=== PATIENT | female | born 1985 | race Caucasian/White ===

== ENCOUNTER 2016-11-20 22:37 | Emergency (ER) | payer BC ==
[~2016-11-20] VITALS: Ht 172.7 cm; Wt 105.5 kg
[2016-11-20 22:40] VITALS: TEMP 36.9; Ht 172.7 cm; Wt 105.5 kg
[2016-11-20] MEDS ORDERED: KETOROLAC TROMETHAMINE 30 MG/ML VIAL IV STA (22:49)
[2016-11-20] MEDS ORDERED: ONDANSETRON INJ 2 MG/ML 2 ML VIAL IV STA (22:49)
[2016-11-20] MEDS ORDERED: SODIUM CHLORIDE 0.9% 1000ML 1,000 ML IV STA ×2 (22:49)
[2016-11-20] MEDS ORDERED: LIDOCAINE HCL 2% VISC SOLN 20 ML UDC PO STA (22:55)
[2016-11-20] MEDS ORDERED: ALUMINUM/MAGNESIUM SUSP 30 ML UDC PO STA (22:55)
[2016-11-20] MEDS ORDERED: DICYCLOMINE HCL 10 MG/ML 2 ML AMP IM ONE (23:00)
[2016-11-20 23:28] VITALS: O2SAT 98
[2016-11-21 00:10] LABS: BASO % 0.4 %; BASO ABS # 0.05 K/uL (0-0.2); COMPLETE YES; EOS % 1.7 %; HEMATOCRIT 34.9 % (37-47); IG% 0.4 %; LYMPH % 16.6 %; LYMPH ABS # 2.24 K/uL (1.2-3.4); MEAN CELL VOLUME 85.5 fL (80-100); MEAN CORPUSCULAR HEMOGLOBIN 28.9 pg (25-34); MEAN CORPUSCULAR HGB CONC 33.8 g/dl (32-36); NEUT % 71.9 %; PLATELET COUNT 350 K/uL (130-400); RED BLOOD COUNT 4.08 M/uL (4.2-5.4); WHITE BLOOD COUNT 13.47 K/uL (4.8-10.8)
[2016-11-21 00:27] LABS: ALT/SGPT 85 U/L (12-78); AST/SGOT 64 U/L (15-37); BLOOD UREA NITROGEN 10 mg/dl (7-18); BUN/CREATININE RATIO 14.7 (10-20); CALCIUM 8.1 mg/dl (8.5-10.1); CARBON DIOXIDE 21 mmol/L (21-32); CHLORIDE 112 mmol/L (98-107); CREATININE 0.69 mg/dl (0.60-1.20); GLUCOSE 109 mg/dl (70-99); MAGNESIUM 1.9 mg/dl (1.8-2.4); POTASSIUM 3.6 mmol/L (3.5-5.1); SODIUM 144 mmol/L (136-145)
[2016-11-21 00:30] LABS: ALKALINE PHOSPHATASE 98 U/L (45-117); C-REACTIVE PROTEIN < 0.29 mg/dl (0-0.29)
[2016-11-21 00:51] LABS: PREG INTERNAL NEGATIVE QC NEG CLEAR BACKGROUND; PREG INTERNAL POSITIVE QC POS CONTROL LINE
[2016-11-21 02:28] LABS: URINE APPEARANCE CLEAR (CLEAR); URINE BILIRUBIN NEG (NEG); URINE COLOR YELLOW; URINE EPITHELIAL CELL AUTO >30 /lpf (0-5); URINE NITRITE NEG (NEG); URINE SPECIFIC GRAVITY > 1.045 (1.000-1.030); UROBILINOGEN NEG (NEG); ZZUR CULT IF INDIC CLEAN CATCH NO
[2016-11-21 02:36] LABS: MANUAL MICROSCOPIC REQUIRED? NO; REVIEW REQ? NO
[2016-11-21] MEDS ORDERED: MoRPHine SULFATE 4 MG/ML 1 ML CARP\\VIAL IV STA (02:54)
[2016-11-21 04:05] VITALS: BP 128/79; PULSE 99; O2SAT 99
--- NOTE | 2016-11-21 06:33 | EMERGENCY ROOM VISIT NOTE ---
History First contact with patient: 22:43 Chief Complaint: ABDOMINAL PAIN Stated Complaint: STOMACH PAIN Nursing Triage Summary: RUQ abdominal pain with nausea. intermittent pain for 2 weeks. Today the pain started at 1600 after eating burritos. Patient has a history of colitis. History of Present Illness The patient is a 31 year old female who presents to the Emergency Room with complaints of epigastric right upper quadrant discomfort after eating burritos today. Patient states she had a CT scan last week. She is ulcer colitis. She does not feel like she is having a flare of her UC. She is in town visiting her boyfriend from [place]. She describes the pain as burning, ranging in severity 5 out of 10. Nothing makes it better or worse. Patient denies chest pain, dyspnea, fever, chills, vomiting, diarrhea, back pain, urinary symptoms. Review of Systems See HPI for pertinent positives & negatives. A total of 10 systems reviewed and were otherwise negative. Past Medical/Surgical History Ulcerative colitis, GERD, anxiety, OCD, palpitations, migraines, asthma, cholecystectomy Social History Smoking Status: Never Smoker Smokeless Tobacco Use: No Alcohol Use: none Drug Use: none Marital Status: in relationship Allergies Coded Allergies: No Known Allergies (Unverified , 11/20/16) Physical Exam Vital Signs Date Time Temp Pulse Resp B/P Pulse Ox O2 Delivery O2 Flow Rate FiO2 11/21/16 04:05 99 18 128/79 99 11/21/16 03:29 99 18 128/79 99 Room Air 11/21/16 02:51 106 18 111/67 99 Room Air 11/21/16 01:15 104 16 125/65 98 Room Air 11/21/16 00:11 102 16 123/69 97 Room Air 11/20/16 23:28 98 Room Air 11/20/16 22:40 36.9 118 18 139/87 98 Room Air Pain Rating (0-10): 3.0 Physical Exam VITALS: Vitals are noted on the nurse's note and reviewed by myself. Vital signs stable. GENERAL: Pleasant female, in no acute distress, nondiaphoretic, well-developed well-nourished. SKIN: The skin was without rashes, erythema, edema, or bruising. There is no tenting of the skin. Capillary reflex less than 2 seconds. HEAD: Normocephalic atraumatic. EARS: External auditory canals clear, tympanic membranes pearly [place] without erythema or effusion bilaterally. EYES: Pupils equal round and reactive to light and accommodation. Conjunctivae without injection, sclerae without icterus. Extraocular movements intact. NOSE: Patent, turbinates without inflammation or discharge. MOUTH: Mucous membranes moist. Pharynx without erythema or exudate. Uvula midline. Airway patent. Tongue does not deviate. NECK: Supple without nuchal rigidity. No lymphadenopathy. No thyromegaly. Cervical spine is nontender. No JVD. HEART: Regular rate and rhythm without murmurs gallops or rubs. LUNGS: Clear to auscultation bilaterally without wheezes, rales or rhonchi. No dullness to percussion. No retractions or accessory muscle use. ABDOMEN: Positive bowel sounds x 4. Normal tympanic percussion. Soft, minimally tender epigastric region, no CVA tenderness, without masses or organomegaly. Cruz sign negative. No guarding or rebound tenderness. MUSCULOSKELETAL: No muscle atrophy, erythema, or edema noted. NEURO: Patient was alert and oriented to person place and time. Normal sensation to light and sharp touch. No focal neurological deficits. Medical Decision & Procedures Laboratory Results 11/20/16 23:58 Red Blood Count 4.08, Mean Corpuscular Volume 85.5, Mean Corpuscular Hemoglobin 28.9, Mean Corpuscular Hemoglobin Concent 33.8, Mean Platelet Volume 10.0, Neutrophils (%) (Auto) 71.9, Lymphocytes (%) (Auto) 16.6, Monocytes (%) (Auto) 9.0, Eosinophils (%) (Auto) 1.7, Basophils (%) (Auto) 0.4, Neutrophils # (Auto) 9.68, Lymphocytes # (Auto) 2.24, Monocytes # (Auto) 1.21, Eosinophils # (Auto) 0.23, Basophils # (Auto) 0.05 11/20/16 23:58 Test 11/20/16 23:25 11/20/16 23:58 11/21/16 00:00 11/21/16 02:10 Urine Color YELLOW Urine Appearance CLEAR (CLEAR) Urine pH 5.0 (4.5-7.5) Urine Specific [place] > 1.045 (1.000-1.030) Urine Protein NEG (NEG) Urine Glucose (UA) NEG (NEG) Urine Ketones TRACE (NEG) Urine Occult Blood NEG (NEG) Urine Nitrite NEG (NEG) Urine Bilirubin NEG (NEG) Urine Urobilinogen NEG (NEG) Urine Leukocyte Esterase TRACE (NEG) Urine WBC (Auto) 5-10 /hpf (0-5) Urine RBC (Auto) 0-4 /hpf (0-4) Urine Hyaline Casts (Auto) 1-5 /lpf (0-5) Urine Epithelial Cells (Auto) >30 /lpf (0-5) Urine Bacteria (Auto) NEG (NEG) White Blood Count 13.47 K/uL (4.8-10.8) Red Blood Count 4.08 M/uL (4.2-5.4) Hemoglobin 11.8 g/dL (12.0-16.0) Hematocrit 34.9 % (37-47) Mean Corpuscular Volume 85.5 fL (80-100) Mean Corpuscular Hemoglobin 28.9 pg (25-34) Mean Corpuscular Hemoglobin Concent 33.8 g/dl (32-36) Platelet Count 350 K/uL (130-400) Mean Platelet Volume 10.0 fL (7.4-10.4) Neutrophils (%) (Auto) 71.9 % Lymphocytes (%) (Auto) 16.6 % Monocytes (%) (Auto) 9.0 % Eosinophils (%) (Auto) 1.7 % Basophils (%) (Auto) 0.4 % Neutrophils # (Auto) 9.68 K/uL (1.4-6.5) Lymphocytes # (Auto) 2.24 K/uL (1.2-3.4) Monocytes # (Auto) 1.21 K/uL (0.11-0.59) Eosinophils # (Auto) 0.23 K/uL (0-0.5) Basophils # (Auto) 0.05 K/uL (0-0.2) RDW Standard Deviation 44.4 fL (36.4-46.3) RDW Coefficient of Variation 14.2 % (11.5-14.5) Immature Granulocyte % (Auto) 0.4 % Immature Granulocyte # (Auto) 0.06 K/uL (0.00-0.02) Erythrocyte Sedimentation Rate 7 mm/hr (0-21) Anion Gap 11.0 mmol/L (3-11) Est Creatinine Clear Calc Drug Dose 151.6 ml/min Estimated GFR () 135.4 Estimated GFR (Non- 116.8 BUN/Creatinine Ratio 14.7 (10-20) Calcium Level 8.1 mg/dl (8.5-10.1) Magnesium Level 1.9 mg/dl (1.8-2.4) Total Bilirubin 0.4 mg/dl (0.2-1) Direct Bilirubin < 0.1 mg/dl (0-0.2) Aspartate Amino Transf (AST/SGOT) 64 U/L (15-37) Alanine Aminotransferase (ALT/SGPT) 85 U/L (12-78) Alkaline Phosphatase 98 U/L (45-117) C-Reactive Protein < 0.29 mg/dl (0-0.29) Total Protein 7.0 gm/dl (6.4-8.2) Albumin 3.6 gm/dl (3.4-5.0) Lipase 178 U/L (73-393) Human Chorionic Gonadotropin, Qual NEG (NEG) Bedside Lactic Acid Venous 2.67 mmol/L (0.90-1.70) Lactic Acid Level 1.6 mmol/L (0.4-2.0) Medications Administered Medications (Trade) Dose Ordered Sig/Nichole Route Start Time Stop Time Status Last Admin Dose Admin Dicyclomine HCl (Bentyl Inj) 20 mg NOW ONCE IM 11/20/16 23:00 11/20/16 23:01 DC 11/20/16 23:21 20 MG Ondansetron HCl 4 mg 4 mg NOW STAT IV 11/20/16 22:49 11/20/16 22:52 DC 11/20/16 23:20 4 MG Sodium Chloride 1,000 ml @ 999 mls/hr Q1H1M STAT IV 11/20/16 22:49 11/20/16 23:49 DC 11/20/16 23:20 999 MLS/HR Sodium Chloride (Nss 1000ml) 1,000 ml @ 200 mls/hr Q5H STAT IV 11/20/16 22:49 11/21/16 03:48 DC 11/21/16 01:18 200 MLS/HR Ketorolac Tromethamine (Toradol Inj) 30 mg NOW STAT IV 11/20/16 22:49 11/20/16 22:52 DC 2/17/17 23:21 30 MG Lidocaine HCl (Viscous Lidocaine 2% Soln) 10 ml NOW STAT PO 11/20/16 22:55 11/20/16 22:57 DC 11/20/16 23:21 10 ML Al Hydroxide/Mg Hydroxide (Maalox Susp) 30 ml NOW STAT PO 11/20/16 22:55 11/20/16 22:57 DC 11/20/16 23:20 30 ML Morphine Sulfate (MoRPHine SULFATE INJ) 4 mg NOW STAT IV 11/21/16 02:54 11/21/16 02:55 DC 11/21/16 03:07 4 MG ED Course Prior records/ancillary studies reviewed. Triage Nursing notes reviewed. The patient's history was concerning for abdominal pain. Differential diagnosis: Etiologies such as appendicitis, diverticulitis, PUD, biliary pathology, UTI, pancreatitis, obstruction, mesenteric ischemia, aortic pathology, infections, inflammatory bowel disease, renal colic, as well as others were entertained. Physical examination findings: As above. ER treatment provided: GI cocktail On reassessment the patient felt better. Diagnostics interpreted by me: The labs revealed a leukocytosis. Elevated lactic acid. Repeat was normal. Negative sedimentation rate. Exam and history seem consistent with reflux. Patient felt much better after being medicated as above. She had a mild reaction to morphine and was advised not to take this in the future. She did not have acute abdomen on exam. Patient declined CT imaging. I felt this is reasonable. Her symptoms started after eating [place] food. She felt better after antacids. She is advised to follow-up with family care in a few days or here in the ER sooner for abdominal pain, fevers, vomiting, worsening signs or symptoms or as needed. By the evaluation outlined above emergent etiologies such as appendicitis, diverticulitis, PUD, biliary pathology, UTI, pancreatitis, obstruction, mesenteric ischemia, aortic pathology, infections, inflammatory bowel disease, renal colic, as well as others were deemed relatively unlikely. The pt informed about the findings as listed above. All questions were answered and pleased with the treatment. Return instructions were outlined and the patient was discharged in stable condition. Referral: The patient was referred back to their primary care physician for follow-up in 2 to 3 days for a recheck of the current condition. Case reviewed with my attending Medical Decision As above Impression Primary Impression: Abdominal discomfort in right upper quadrant Departure Information Dispostion Home / Self-Care Condition GOOD Forms Call Back Authorization, HOME CARE DOCUMENTATION FORM, IMPORTANT VISIT INFORMATION Patient Instructions Abdominal Pain - [facility], [facility] Additional Instructions Acetaminophen(Tylenol) may be used for fever or pain. Use 1000mg every six hours as needed. Avoid using more than 3000mg in a 24 hour period. Rest and drink plenty of fluids as tolerated. Continue current medications. Avoid strenuous activities and anything that worsens your pain. Resume normal activities once your symptoms resolve. Return to the ER immediately for worsening or persistent abdominal pain, vomiting, fevers, chest pains, difficulty breathing, worsening of your condition , or as needed. Follow up with your primary physician or director of graduate admissions in 2-3 days for a recheck of your current condition.
== END 2016-11-21 04:06 | disposition home or self-care (01) ==
LOC: C.EDB 22:39
DX: R10.11 Right upper quadrant pain (principal); T40.2X5A Adverse effect of other opioids, initial encounter; K51.90 Ulcerative colitis, unspecified, without complications; Z90.49 Acquired absence of other specified parts of digestive tract